=== PATIENT | male | born 1950 | race Caucasian/White ===

== ENCOUNTER 2022-09-05 13:55 | Outpatient (CLI) | payer MEDICARE, OTHER | END 2022-09-05 13:56 | disposition home or self-care (01) | LOC: CSHMRI 13:55 | PROVIDERS: ATTEND Specialist | DX: M51.16 Intervertebral disc disorders with radiculopathy, lumbar region (principal); Z98.890 Other specified postprocedural states; M47.816 Spondylosis without myelopathy or radiculopathy, lumbar region; Z96.82 Presence of neurostimulator; M79.89 Other specified soft tissue disorders | CPT/HCPCS: 72148 ==

== ENCOUNTER 2024-04-22 10:47 | Emergency (ER) | payer MEDICARE, OTHER ==
[2024-04-22 12:34] LABS: #Basophils 0.02 10x3/uL (0.0-0.2); #Eosinophils 0.16 10x3/uL (0.0-0.5); #Monocytes 0.58 10x3/uL (0.0-1.1); #Neutrophils 3.03 10x3/uL (1.5-8.4); %Basophils 0.4 % (0.0-2.0); %Eosinophils 2.9 % (0.0-6.0); %Lymphocytes 32.4 % (18.0-47.0); %Monocytes 10.3 % (0.0-10.0); Hematocrit 36.5 % (38.8-50.0); Hemoglobin 12.1 g/dL (13.5-17.5); Mean Corpuscular HGB CONC 33.2 g/dL (32.0-36.0); Mean Corpuscular Volume 90.6 fL (81.2-95.1); Mean Platelet Volume 10.1 fL (7.4-10.4); Platelet Count 210 10x3/uL (150-450); RBC Distribution Width 11.8 % (11.5-14.5); Red Blood Cell (RBC) Count 4.03 10x6/uL (4.32-5.72); White Blood Cell (WBC) Count 5.6 10x3/uL (3.5-10.5)
[2024-04-22 12:47] LABS: Anion Gap 11 mmol/L (10-20); BUN (Urea Nitrogen) 17 mg/dL (8.4-25.7); Calc. Creatinine Clearance 0 mL/min (70-130); Calcium 8.7 mg/dL (7.8-10.44); Carbon Dioxide 22 mmol/L (23-31); Chloride 110 mmol/L (98-107); Estimated GFR 67; Glucose 207 mg/dL (83-110); Potassium 4.3 mmol/L (3.5-5.1); Sodium 139 mmol/L (136-145)
[2024-04-22 12:52] LABS: Troponin I Less than 0.010 ng/mL (< 0.028)
[2024-04-22] MEDS ORDERED: Ondansetron PF 4 MG/2 ML Vial ONE (13:14)
[2024-04-22] MEDS ORDERED: Famotidine/PF 20 mg/2ml Vial ONE (13:14)
[2024-04-22 14:08] LABS: ALT (SGPT) 21 U/L (8-55); AST (SGOT) 23 U/L (5-34); Albumin 3.2 g/dL (3.4-4.8); Alkaline Phosphatase 60 U/L (40-110); Bilirubin, Direct 0.2 mg/dL (0.1-0.3); Bilirubin, Total 0.5 mg/dL (0.2-1.2); Lipase 11 U/L (8-78)
[2024-04-22 14:42] LABS: Troponin I Less than 0.010 ng/mL (< 0.028)
== END 2024-04-22 15:24 | disposition home or self-care (01) ==
LOC: CSHERS 10:47
DX: K21.9 Gastro-esophageal reflux disease without esophagitis (principal); I10 Essential (primary) hypertension
CPT/HCPCS: 71045; 80048; 80076; 83690; 84484 ×2; 85025; 93005; J2405; J3490; 36415; 96374; 96375